=== PATIENT | male | born 1990 ===

== ENCOUNTER 2020-03-23 18:43 | Emergency (ER) | payer BC ==
[2020-03-23] MEDS ORDERED: Glucagon,Human Recombinant 1 MG Vial IVPUSH ONE (18:51)
--- NOTE | 2020-03-23 18:51 | EDM.PDOC ---
ED HPI GENERAL MEDICAL PROBLEM - General Chief Complaint: General Stated Complaint: FOOD STUCK IN THROAT Time Seen by Provider: 03/23/20 18:51 Source of Information: Reports: Patient History Limitations: Reports: No Limitations - History of Present Illness INITIAL COMMENTS - FREE TEXT/NARRATIVE: HISTORY AND PHYSICAL: History of present illness: Patient is a 29-year-old male presents to the ED with complaint of food stuck in the throat. He states about 30 minutes prior to arrival to the ED he was eating a sugar snappy and states he can feel it stuck in his throat. States he has been able to swallow his saliva but states that when he drinks water it comes back up. He denies any difficulty breathing. He denies significant past medical history. Patient was given water on initial evaluation but was not able to keep it down. Review of systems: As per history of present illness and below otherwise all systems reviewed and negative. Past medical history: As per history of present illness and as reviewed below otherwise noncontributory. Surgical history: As per history of present illness and as reviewed below otherwise noncontributory. Social history: No reported history of drug or alcohol abuse. Family history: As per history of present illness and as reviewed below otherwise noncontributory. Physical exam: General: Patient sitting comfortably in no acute distress and nontoxic appearing HEENT: Atraumatic, normocephalic, pupils reactive, negative for conjunctival pallor or scleral icterus, mucous membranes moist, throat clear, neck supple, nontender, trachea midline. No meningeal signs. Lungs: Clear to auscultation, breath sounds equal bilaterally, chest nontender. Heart: S1S2, regular, negative for clicks, rubs, or overt murmur. Abdomen: Soft, nondistended, nontender. Negative for masses or hepatosplenomegaly. Negative for costovertebral tenderness. No rigidity, rebound , guarding. Pelvis: Stable nontender. Genitourinary: Deferred. Rectal: Deferred. Extremities: Atraumatic, negative for cords or calf pain. Neurovascular unremarkable. Neuro: Awake, alert, oriented. Cranial nerves II through XII unremarkable. Cerebellum unremarkable. Motor and sensory unremarkable throughout. Exam nonfocal. Notes: Patient states he no longer feels like food is stuck and is able to drink water and swallow saliva without difficulty after glucagon was given. Diagnostics: none Therapeutics: 1mg Glucagon IV Prescriptions: none Impression: Esophageal food bolus Plan: Follow up with primary care provider Return to ED as needed as discussed Definitive disposition and diagnosis as appropriate pending reevaluation and review of above. - Related Data Allergies Allergy/AdvReac Type Severity Reaction Status Date / Time No Known Allergies Allergy Verified 03/23/20 18:52 Home Meds: Home Meds . [No Known Home Meds] 09/28/14 [History] Past Medical History - Past Health History Medical/Surgical History: Denies Medical/Surgical History ED ROS GENERAL - Review of Systems Review Of Systems: Comprehensive ROS is negative, except as noted in HPI. ED EXAM, GENERAL - Physical Exam Exam: See Below (see dictation) Course - Vital Signs Last Recorded V/S: Last Vital Signs Temp 97.9 F 03/23/20 18:50 Pulse 18 L 03/23/20 18:50 Resp 18 03/23/20 18:50 BP 142/87 H 03/23/20 18:50 Pulse Ox 99 03/23/20 18:50 - Orders/Labs/Meds Meds: Medications Discontinued Medications Generic Name Dose Route Start Last Admin Trade Name Cee PRN Reason Stop Dose Admin Glucagon 1 mg 03/23/20 18:51 03/23/20 19:09 Glucagen IVPUSH 03/23/20 18:52 1 mg ONETIME ONE Administration Ondansetron HCl 4 mg 03/23/20 19:01 03/23/20 19:09 Zofran IVPUSH 03/23/20 19:02 4 mg ONETIME ONE Administration Ondansetron HCl Confirm 03/23/20 19:01 03/23/20 19:09 Zofran Administered 03/23/20 19:02 Not Given Dose 4 mg .ROUTE .STK-MED ONE Departure - Departure Time of Disposition: 19:28 Disposition: Home, Self-Care 01 Condition: Good Clinical Impression: Food impaction of esophagus - Discharge Information Referrals: PCP,None [Primary Care Provider] - Forms: ED Department Discharge Additional Instructions: The following information is given to patients seen in the emergency department who are being discharged to home. This information is to outline your options for follow-up care. We provide all patients seen in our emergency department with a follow-up referral. The need for follow-up, as well as the timing and circumstances, are variable depending upon the specifics of your emergency department visit. If you don't have a primary care physician on staff, we will provide you with a referral. We always advise you to contact your personal physician following an emergency department visit to inform them of the circumstance of the visit and for follow-up with them and/or the need for any referrals to a consulting specialist. The emergency department will also refer you to a specialist when appropriate. This referral assures that you have the opportunity for follow-up care with a specialist. All of these measure are taken in an effort to provide you with optimal care, which includes your follow-up. Under all circumstances we always encourage you to contact your private physician who remains a resource for coordinating your care. When calling for follow-up care, please make the office aware that this follow-up is from your recent emergency room visit. If for any reason you are refused follow-up, please contact the [facility] at and asked to speak to the emergency department charge nurse. [facility] [address] [place] [address] [place] [address] Follow up with primary care provider Return to ED as needed as discussed Sepsis Event Note - Focused Exam Vital Signs: Vital Signs Temp Pulse Resp BP Pulse Ox 03/23/20 18:50 97.9 F 18 L 18 142/87 H 99 Date Exam was Performed: 03/23/20 Time Exam was Performed: 19:25
[2020-03-23] MEDS ORDERED: Ondansetron 4 MG/2 ML SDV IVPUSH ONE (19:01)
[2020-03-23] MEDS ORDERED: Ondansetron 4 MG/2 ML SDV ONE (19:01)
== END 2020-03-23 19:34 | disposition home or self-care (01) ==
LOC: MW.ED 18:43
DX: T17.228A Food in pharynx causing other injury, initial encounter (principal)
CPT/HCPCS: 96374; 96375; 99283; J1610; J2405; 99282

== ENCOUNTER 2020-10-13 06:29 | Day surgery (SDC) | payer BC ==
[~2020-10-13 06:29] MED LIST: Lactated Ringers 1,000 ML IV SCH
[2020-10-13] MEDS ORDERED: Propofol 200 MG/20 ML SDV ONE (07:05)
[2020-10-13] MEDS ORDERED: Lidocaine 2% 5 ML SDV ONE (07:05)
[2020-10-13] MEDS ORDERED: Midazolam 1 MG/ML 2 ML SDV ONE (07:05)
[2020-10-13] MEDS ORDERED: fentaNYL 100 MCG/2 ML SDV ONE (07:06)
--- NOTE | 2020-10-13 07:19 | PCM.PREANE ---
Preanesthetic Assessment - Anesthesia/Transfusion/Family Hx Anesthesia History: Prior Anesthesia Without Reaction Family History of Anesthesia Reaction: No Transfusion History: No Prior Transfusion(s) Intubation History: Unknown - Review of Systems General: No Symptoms Pulmonary: No Symptoms Cardiovascular: No Symptoms Gastrointestinal: Difficulty Swallowing Neurological: No Symptoms Other: Reports: None - Physical Assessment Vital Signs: Last Vital Signs Temp 36.2 C 10/13/20 06:47 Pulse 73 10/13/20 06:47 Resp 16 10/13/20 06:47 BP 125/79 10/13/20 06:47 Pulse Ox 99 10/13/20 06:47 Height: 5 ft 11 in Weight: 88.451 kg ASA Class: 2 Mental Status: Alert & Oriented x3 Airway Class: Mallampati = 2 Dentition: Reports: Normal Dentition Thyro-Mental Finger Breadths: 3 Mouth Opening Finger Breadths: 2 ROM/Head Extension: Full Lungs: Clear to Auscultation, Normal Respiratory Effort Cardiovascular: Regular Rate, Regular Rhythm - Allergies Allergies/Adverse Reactions: Allergies Allergy/AdvReac Type Severity Reaction Status Date / Time No Known Allergies Allergy Verified 10/13/20 06:54 - Blood Blood Available: No - Anesthesia Plan Pre-Op Medication Ordered: None - Acknowledgements Anesthesia Type Planned: MAC Pt an Appropriate Candidate for the Planned Anesthesia: Yes Alternatives and Risks of Anesthesia Discussed w Pt/Guardian: Yes Pt/Guardian Understands and Agrees with Anesthesia Plan: Yes PreAnesthesia Questionnaire - Past Health History Medical/Surgical History: Denies Medical/Surgical History HEENT History: Reports: None Cardiovascular History: Reports: None Respiratory History: Reports: None Gastrointestinal History: Reports: GERD, Other (See Below) Other Gastrointestinal History: dysphagia Genitourinary History: Reports: None Musculoskeletal History: Reports: None Neurological History: Reports: None Psychiatric History: Reports: None Endocrine/Metabolic History: Reports: None Hematologic History: Reports: None Immunologic History: Reports: None Oncologic (Cancer) History: Reports: None Dermatologic History: Reports: None - Infectious Disease History Infectious Disease History: Reports: Chicken Pox Other Infectious Disease History: when a child - Past Surgical History Head Surgeries/Procedures: Reports: None HEENT Surgical History: Reports: Oral Surgery, Tonsillectomy Cardiovascular Surgical History: Reports: None Respiratory Surgical History: Reports: None GI Surgical History: Reports: None Male Surgical History: Reports: None Endocrine Surgical History: Reports: None Neurological Surgical History: Reports: None Musculoskeletal Surgical History: Reports: None Oncologic Surgical History: Reports: None Dermatological Surgical History: Reports: None - SUBSTANCE USE Tobacco Use Within Last Twelve Months: Snuff/Dip - HOME MEDS Home Medications: Home Meds . [No Known Home Meds] 09/28/14 [History] - CURRENT (IN HOUSE) MEDS Current Meds: Current Medications Lactated Ringer's (Ringers, Lactated) 1,000 mls @ 125 mls/hr IV ASDIRECTED [facility] Last Admin: 10/13/20 06:53 Dose: 125 mls/hr Documented by: Discontinued Medications Fentanyl (Sublimaze) Confirm Administered Dose 100 mcg .ROUTE .STK-MED ONE Stop: 10/13/20 07:07 Lidocaine (Xylocaine-Mpf 2%) Confirm Administered Dose 5 ml .ROUTE .STK-MED ONE Stop: 10/13/20 07:06 Midazolam HCl (Versed 1 Mg/Ml) Confirm Administered Dose 2 mg .ROUTE .STK-MED ON E Stop: 10/13/20 07:06 Propofol (Diprivan 20 Ml) Confirm Administered Dose 400 mg .ROUTE .STK-MED ONE Stop: 10/13/20 07:06
--- NOTE | 2020-10-13 08:10 | PCM.OPNOTE ---
- General Post-Op/Procedure Note Date of Surgery/Procedure: 10/13/20 Operative Procedure(s): EGD with biopsies Findings: Minimal gastritis Slightly irregular GE junction Dictation number [id number] Pre Op Diagnosis: GERD, Dysphgia Post-Op Diagnosis: Minimal gastritis. Slightly irregular GE junction Primary Surgeon: Marky Dutton Pathology: Biopsies Condition: Good
--- NOTE | 2020-10-13 08:47 | PCM.POSTAN ---
POST ANESTHESIA ASSESSMENT - MENTAL STATUS Mental Status: Alert, Oriented - VITAL SIGNS Vital Signs: Last Vital Signs Temp 36.3 C 10/13/20 08:25 Pulse 93 10/13/20 08:25 Resp 14 10/13/20 08:25 BP 113/70 10/13/20 08:25 Pulse Ox 95 10/13/20 08:25 - RESPIRATORY Respiratory Status: Respiratory Rate WNL, Airway Patent, O2 Saturation Stable - CARDIOVASCULAR CV Status: Pulse Rate WNL, Blood Pressure Stable - GASTROINTESTINAL GI Status: No Symptoms - PAIN Pain Score: 0 - POST OP HYDRATION Hydration Status: Adequate & Stable - OBSERVATIONS Free Text/Narrative:: No anesthesia problems
--- NOTE | 2020-10-13 08:48 | PCM48HPAN ---
Post Anesthesia Note - EVALUATION WITHIN 48HRS OF ANESTHETIC Vital Signs in Normal Range: Yes Patient Participated in Evaluation: Yes Respiratory Function Stable: Yes Airway Patent: Yes Cardiovascular Function Stable: Yes Hydration Status Stable: Yes Pain Control Satisfactory: Yes Nausea and Vomiting Control Satisfactory: Yes Mental Status Recovered: Yes Vital Signs: Last Vital Signs Temp 36.3 C 10/13/20 08:25 Pulse 93 10/13/20 08:25 Resp 14 10/13/20 08:25 BP 113/70 10/13/20 08:25 Pulse Ox 95 10/13/20 08:25 - COMMENTS/OBSERVATIONS Free Text/Narrative:: No anesthesia problems
--- NOTE | 2020-10-13 10:44 | OR ---
SURGEON: STEPHANIE ROBLES MD DATE OF PROCEDURE: 10/13/2020 PREOPERATIVE DIAGNOSES: 1. Gastroesophageal reflux disease. 2. Dysphagia. POSTOPERATIVE DIAGNOSES: 1. Minimal gastritis. 2. Slightly irregular gastroesophageal junction. PROCEDURE PERFORMED: Esophagogastroduodenoscopy with biopsies. ANESTHESIA: General with anesthesiologist. LIMITATIONS: None. ESTIMATED BLOOD LOSS: Minimal. REASON FOR PROCEDURE: The patient is a pleasant 30-year-old gentleman who says that about once or twice a month he feels like food just stuck at the base of the esophagus. He says between these episodes, he has no issues. He does have refluxes, well controlled while he takes his omeprazole, but he often forgets to take it. Lately, he has been taking his omeprazole on a regular basis and has had no issues with GERD or his dysphagia. He did have an upper GI swallow, which showed a small sliding hiatal hernia and then a mild transient reflux. PROCEDURE IN DETAIL: Physical exam was performed. The major risks and benefits associated with the procedure were explained to the patient in detail. The patient verbalized understanding of the same. The patient was then connected to the appropriate monitoring devices and IV started. EKG, pulse, pulse oximetry, blood pressure, and capnography were monitored throughout the procedure. The patient's oxygen and sedation were provided by the anesthesiologist. After time-out was performed and the patient was adequately sedated, upper endoscope was advanced under direct visualization without difficulty to the upper GI tract. The anatomy and mucosa of the esophagus, GE junction, stomach, pylorus, and at least up to the second part of the duodenum were all inspected. Duodenum appeared normal. Both retro and antegrade views of the stomach were done. No ulcerations were seen. Perhaps there was some very minimal gastritis. Biopsy was taken of the pylorus to check for H. pylori. On retrograde view, the patient did have and did really saw a sliding hernia. The patient did have slight laxity at the GE junction. Scope was brought to the GE junction. GE junction was at approximately 40 cm from the incisor. He does have slight irregularity to the Z-line with maybe some mild inflammation. Did do several biopsies of this area. Scope was brought back into the stomach. Stomach was desufflated. GE junction had good hemostasis at the biopsy site. Scope was brought up to the esophagus. Esophagus appeared normal. Scope was removed. The procedure was terminated. ENDOSCOPIC DIAGNOSES: 1. Minimal gastritis. 2. Slightly irregular gastroesophageal junction. RECOMMENDATION: The patient to follow up in clinic to go over his pathology. The patient was again recommended to continue his daily omeprazole. LANNY LANDON /[id number]
== END 2020-10-13 08:41 | disposition home or self-care (01) ==
LOC: MW.SDS 06:29
PROVIDERS: ATTEND Surgery
DX: K29.50 Unspecified chronic gastritis without bleeding (principal); K21.9 Gastro-esophageal reflux disease without esophagitis; K44.9 Diaphragmatic hernia without obstruction or gangrene; T18.128A Food in esophagus causing other injury, initial encounter
CPT/HCPCS: 43239; J2001; J2250; J2704; J3010; J7120